=== PATIENT | female | born 2000 | race Caucasian/White ===

== ENCOUNTER → 2022-10-08 15:11 | Outpatient (BNVA) | payer BC, SELFPAY | PROVIDERS: Family Provider Pediatrics Adolescent Medicine; PCP Pediatrics Adolescent Medicine; Visit Provider Nurse Practitioner Women's Health | DX: R68.82 Decreased libido (principal); Z30.9 Encounter for contraceptive management, unspecified; Z30.011 Encounter for initial prescription of contraceptive pills | CPT/HCPCS: 82670; 83001; 84402; 84439; 84443 ==

== ENCOUNTER → 2023-01-26 11:00 | Outpatient (BNVA) | payer BC, SELFPAY | PROVIDERS: Family Provider Pediatrics Adolescent Medicine; PCP Pediatrics Adolescent Medicine; Visit Provider Nurse Practitioner Women's Health | DX: Z01.419 Encounter for gynecological examination (general) (routine) without abnormal findings (principal); Z30.9 Encounter for contraceptive management, unspecified; Z30.41 Encounter for surveillance of contraceptive pills | CPT/HCPCS: 88175 ==